=== PATIENT | female | born 1990 | race Caucasian/White ===

== ENCOUNTER 2018-03-30 08:06 | Emergency (ER) | payer MEDICAID ==
[2018-03-30 08:54] LABS: URINE BLOOD (Dip) POC Negative (NEGATIVE); URINE GLUCOSE (Dip) POC Negative (NEGATIVE); URINE KETONES (Dip) POC Negative (NEGATIVE); URINE LEUKOCYTE EST (Dip) POC Negative (NEGATIVE); URINE NITRITE (Dip) POC Negative (NEGATIVE); URINE TOTAL PROTEIN POC 1+ (NEGATIVE)
[2018-03-30 08:54] LABS: URINE PH (Dip) POC 8.5 (5.0-8.5)
[2018-03-30] MEDS ORDERED: CEFTRIAXONE 1 GM/50 ML (PMX) 50 ML IVPB (09:00)
[2018-03-30] MEDS ORDERED: LIDOCAINE 1% (MDV) 20 ML INJ SC (09:30)
[2018-03-30] MEDS: CEFTRIAXONE 1 GM INJ IM (09:39)
== END 2018-03-30 09:56 | disposition home or self-care (01) ==
LOC: FTE 08:06
DX: K04.7 Periapical abscess without sinus (principal); F17.210 Nicotine dependence, cigarettes, uncomplicated; E10.9 Type 1 diabetes mellitus without complications
CPT/HCPCS: 81003; 81025; 82962; 96372; 99284-25

== ENCOUNTER 2018-06-12 14:26 | Emergency (ER) | payer SELFPAY, MEDICAID | END 2018-06-12 14:57 | disposition left against medical advice (07) | LOC: E/R 14:57 | DX: Z53.21 Procedure and treatment not carried out due to patient leaving prior to being seen by health care provider (principal) ==

== ENCOUNTER 2018-06-12 15:18 | Emergency (ER) | payer MEDICAID ==
[2018-06-12] MEDS: CEPHALEXIN 500 MG CAP PO (16:05)
[2018-06-12] MEDS: TRIMETHOPRIM/SULFAMETHOX (DS) TAB PO (16:05)
== END 2018-06-12 16:51 | disposition home or self-care (01) ==
LOC: FTE 15:18
DX: L01.00 Impetigo, unspecified (principal); Z87.891 Personal history of nicotine dependence
CPT/HCPCS: 99283; Z7502

== ENCOUNTER 2018-08-25 06:38 | Emergency (ER) | payer MEDICAID ==
[2018-08-25] MEDS: ACETAMINOPHEN 500 MG TAB PO (07:32)
[2018-08-25] MEDS: SODIUM CHLORIDE 0.9% 1L BAG IV* (07:38)
== END 2018-08-25 08:00 | disposition left against medical advice (07) ==
LOC: FTE 06:38
DX: L08.9 Local infection of the skin and subcutaneous tissue, unspecified (principal); I10 Essential (primary) hypertension; E03.9 Hypothyroidism, unspecified; E10.9 Type 1 diabetes mellitus without complications; Z87.891 Personal history of nicotine dependence
CPT/HCPCS: 81025; 93005; 99283-25